=== PATIENT | male | born 1945 | race Hispanic/Latino ===

== ENCOUNTER 2017-07-01 12:20 | Emergency (ER) | payer OTHER, MEDICARE ==
[~2017-07-01 12:20] MED LIST: ACET-66 PO; ASPI81TA40 PO; ATOR40TA71 PO; CARV6.25 PO; DONE10TA43 PO; INSU3INS3 SQ; LINA5TAB PO; METF10004 PO
[2017-07-01 12:54] LABS: BASOPHILS % (AUTO) 0.4 % (0.0-5.0); EOSINOPHILS % (AUTO) 1.2 % (0.0-8.0); HEMATOCRIT 41.1 % (42-54); LYMPHOCYTES % (AUTO) 22.2 % (21.0-51.0); MEAN CORPUSCULAR HEMOGLOBIN 29.1 pg (27.0-33.0); MEAN CORPUSCULAR HGB CONC 34.4 g/dL (32.0-36.0); MEAN CORPUSCULAR VOLUME 84.7 fL (79-99); MONOCYTES % (AUTO) 4.4 % (3.0-13.0); NEUTROPHILS % (AUTO) 71.8 % (40.0-77.0); PLATELET COUNT (AUTO) 188 K/uL (130-400); RED BLOOD CELL COUNT(AUTO) 4.85 MIL/uL (4.50-6.20); RED CELL DISTRIBUTION WIDTH 15.1 % (11.0-15.5)
[2017-07-01 13:03] LABS: CREATININE 0.9 mg/dL (0.5-1.5); POTASSIUM 3.9 mmol/L (3.5-5.1)
[2017-07-01 13:07] LABS: ALBUMIN 3.7 g/dL (3.5-5.0); BILIRUBIN,TOTAL 0.5 mg/dL (0.2-1.0); TOTAL PROTEIN, SERUM 7.7 g/dL (6.0-8.3)
[2017-07-01] MEDS ORDERED: ACETAMINOPHEN EXTRA STRENGTH 500 MG TABLET ONE (13:40)
[2017-07-01 13:46] LABS: INR 0.94 (0.85-1.15); PARTIAL THROMBOPLASTIN TIME 26.1 SEC (26.3-35.5); PROTHROMBIN TIME 9.9 SEC (9.6-11.6)
== END 2017-07-01 14:55 | disposition home or self-care (01) ==
LOC: EDH 12:20
DX: R55 Syncope and collapse (principal); R51 Headache; E11.9 Type 2 diabetes mellitus without complications; E78.5 Hyperlipidemia, unspecified; I10 Essential (primary) hypertension
CPT/HCPCS: 36415; 70450; 80053; 85025; 85610; 85730; 93005

== ENCOUNTER 2018-05-21 12:54 | Emergency (ER) | payer MEDICARE, OTHER ==
[~2018-05-21 12:54] MED LIST changes: +METF-446 PO; -METF10004 PO
[2018-05-21 13:37] LABS: BASOPHILS % (AUTO) 0.8 % (0.0-5.0); EOSINOPHILS % (AUTO) 2.1 % (0.0-8.0); HEMATOCRIT 40.8 % (42-54); LYMPHOCYTES % (AUTO) 22.1 % (21.0-51.0); MEAN CORPUSCULAR HEMOGLOBIN 29.1 pg (27.0-33.0); MEAN CORPUSCULAR HGB CONC 33.6 g/dL (32.0-36.0); MEAN CORPUSCULAR VOLUME 86.4 fL (79-99); PLATELET COUNT (AUTO) 191 K/uL (130-400); RED BLOOD CELL COUNT(AUTO) 4.72 MIL/uL (4.50-6.20); RED CELL DISTRIBUTION WIDTH 14.1 % (11.0-15.5); WHITE BLOOD COUNT (AUTO) 6.1 K/uL (4.8-10.8)
[2018-05-21 13:46] LABS: CREATININE 0.9 mg/dL (0.5-1.5)
[2018-05-21 13:48] LABS: INR 0.99 (0.85-1.15); PARTIAL THROMBOPLASTIN TIME 27.2 SEC (26.3-35.5); PROTHROMBIN TIME 10.4 SEC (9.6-11.6)
[2018-05-21 13:55] LABS: ALBUMIN 3.4 g/dL (3.5-5.0); BILIRUBIN,TOTAL 0.5 mg/dL (0.2-1.0); TOTAL PROTEIN, SERUM 7.4 g/dL (6.0-8.3)
[2018-05-21 14:11] LABS: B-TYPE NATRIURETIC PEPTIDE 101 pg/mL (0-100)
== END 2018-05-21 15:22 | disposition left against medical advice (07) ==
LOC: EDH 12:54
DX: R07.89 Other chest pain (principal); E11.9 Type 2 diabetes mellitus without complications; E78.5 Hyperlipidemia, unspecified; I10 Essential (primary) hypertension; Z88.6 Allergy status to analgesic agent; Z87.891 Personal history of nicotine dependence
CPT/HCPCS: 36415; 71045; 80053; 82550; 83880; 84484; 85025; 85610; 85730; 93005

== ENCOUNTER 2018-09-24 10:27 | Emergency (ER) | payer MEDICARE ==
[2018-09-24 11:47] LABS: BASOPHILS % (AUTO) 0.8 % (0.0-5.0); EOSINOPHILS % (AUTO) 1.4 % (0.0-8.0); HEMATOCRIT 36.9 % (42-54); LYMPHOCYTES % (AUTO) 22.7 % (21.0-51.0); MEAN CORPUSCULAR VOLUME 85.2 fL (79-99); NEUTROPHILS % (AUTO) 69.1 % (40.0-77.0); NUCLEATED RED BLOOD CELLS 0.1 % (0.0-0.19); PLATELET COUNT (AUTO) 212 K/uL (130-400); RED BLOOD CELL COUNT(AUTO) 4.33 MIL/uL (4.50-6.20); RED CELL DISTRIBUTION WIDTH 14.7 % (11.0-15.5); WHITE BLOOD COUNT (AUTO) 6.5 K/uL (4.8-10.8)
[2018-09-24 11:58] LABS: APPEARANCE,URINE Clear (CLEAR); BILIRUBIN,URINE Negative (NEGATIVE); COLOR,URINE Yellow (YELLOW); GLUCOSE, URINE (UA) Negative (NEGATIVE); KETONES,URINE Trace mg/dL (NEGATIVE); LEUKOCYTE ESTERASE ,URINE Negative (NEGATIVE); NITRATE,URINE Negative (NEGATIVE); OCCULT BLOOD,URINE Negative (NEGATIVE); PH,URINE 5.5 (5.0-8.0); PROTEIN,URINE Negative (NEGATIVE)
[2018-09-24 12:05] LABS: INR 1.02 (0.85-1.15); PARTIAL THROMBOPLASTIN TIME 29.6 SEC (26.3-35.5); PROTHROMBIN TIME 10.7 SEC (9.6-11.6)
[2018-09-24 12:34] LABS: BACTERIA,URINE None Seen /HPF (None Seen); MUCUS,URINE Moderate LPF (None Seen); RBC,URINE 0-1 /HPF (0-1); SQUAMOUS EPITHELIAL CELL,UR 0-2 /HPF (0-2); WBC,URINE 0-1 /HPF (0-1)
[2018-09-24] MEDS ORDERED: TRAMADOL HCL 50 MG TABLET ONE (12:57)
== END 2018-09-24 13:16 | disposition home or self-care (01) ==
LOC: EDH 10:27
DX: S09.8XXA Other specified injuries of head, initial encounter (principal); M54.2 Cervicalgia; M25.512 Pain in left shoulder; M25.511 Pain in right shoulder; E11.9 Type 2 diabetes mellitus without complications; E78.5 Hyperlipidemia, unspecified; I10 Essential (primary) hypertension; Z88.6 Allergy status to analgesic agent; W18.39XA Other fall on same level, initial encounter; Y93.89 Activity, other specified; Y92.89 Other specified places as the place of occurrence of the external cause; Y99.8 Other external cause status
CPT/HCPCS: 36415; 70450; 71045; 72070; 72125; 81001; 82550; 84484; 85025; 85610; 85730; 93005

== ENCOUNTER 2018-09-29 13:39 | Inpatient (IN) | payer MEDICARE | END 2018-10-07 20:21 | LOC: EDH 13:39 → EDHIP 18:15 → 3BH 19:37 | DX: J20.9 Acute bronchitis, unspecified (principal); N39.0 Urinary tract infection, site not specified; M62.82 Rhabdomyolysis; E86.0 Dehydration; E11.9 Type 2 diabetes mellitus without complications; I10 Essential (primary) hypertension; R13.12 Dysphagia, oropharyngeal phase; F02.80 Dementia in other diseases classified elsewhere, unspecified severity, without behavioral disturbance, psychotic disturbance, mood disturbance, and anxiety; G30.9 Alzheimer's disease, unspecified; E78.5 Hyperlipidemia, unspecified ==

== ENCOUNTER 2018-10-08 08:12 | Emergency (ER) | payer MEDICARE ==
[~2018-10-08 08:12] MED LIST changes: +MEMA10TA20 PO; +OLAN5TAB27 PO
[2018-10-08] MEDS ORDERED: BISACODYL 10 MG SUPP.RECT RC ONE (08:53)
[2018-10-08 08:57] LABS: BASOPHILS % (AUTO) 0.9 % (0.0-5.0); EOSINOPHILS % (AUTO) 1.7 % (0.0-8.0); HEMATOCRIT 41.1 % (42-54); LYMPHOCYTES % (AUTO) 12.8 % (21.0-51.0); MEAN CORPUSCULAR HEMOGLOBIN 28.6 pg (27.0-33.0); MEAN CORPUSCULAR HGB CONC 33.3 g/dL (32.0-36.0); MEAN CORPUSCULAR VOLUME 85.9 fL (79-99); MONOCYTES % (AUTO) 5.4 % (3.0-13.0); NEUTROPHILS % (AUTO) 79.2 % (40.0-77.0); PLATELET COUNT (AUTO) 329 K/uL (130-400); RED BLOOD CELL COUNT(AUTO) 4.78 MIL/uL (4.50-6.20); RED CELL DISTRIBUTION WIDTH 14.5 % (11.0-15.5); WHITE BLOOD COUNT (AUTO) 7.8 K/uL (4.8-10.8)
[2018-10-08 09:08] LABS: CREATININE 0.8 mg/dL (0.5-1.5); POTASSIUM 3.4 mmol/L (3.5-5.1)
[2018-10-08 09:11] LABS: BILIRUBIN,TOTAL 0.5 mg/dL (0.2-1.0); TOTAL PROTEIN, SERUM 6.9 g/dL (6.0-8.3)
== END 2018-10-08 12:43 | disposition home or self-care (01) ==
LOC: EDH 08:12
DX: E11.9 Type 2 diabetes mellitus without complications (principal); I10 Essential (primary) hypertension; E78.5 Hyperlipidemia, unspecified; Z98.890 Other specified postprocedural states; Z88.6 Allergy status to analgesic agent; Z79.4 Long term (current) use of insulin
CPT/HCPCS: 36415; 71045; 80053; 83735; 84484; 85025; 93005

== ENCOUNTER 2018-10-12 01:11 | Inpatient (IN) | payer MEDICARE ==
[~2018-10-12] VITALS: Ht 172.7 cm; Wt 73.5 kg
[2018-10-12] MEDS ORDERED: IPRATROPIUM/ALBUTEROL SULFATE 3 ML SOLUTION IH ONE ×2 (02:37→05:51)
[2018-10-12 02:44] LABS: BASOPHILS % (AUTO) 0.6 % (0.0-5.0); EOSINOPHILS % (AUTO) 1.3 % (0.0-8.0); HEMATOCRIT 38.6 % (42-54); MEAN CORPUSCULAR VOLUME 85.4 fL (79-99); MONOCYTES % (AUTO) 4.9 % (3.0-13.0); NEUTROPHILS % (AUTO) 80.2 % (40.0-77.0); PLATELET COUNT (AUTO) 301 K/uL (130-400); RED BLOOD CELL COUNT(AUTO) 4.52 MIL/uL (4.50-6.20); RED CELL DISTRIBUTION WIDTH 14.3 % (11.0-15.5); WHITE BLOOD COUNT (AUTO) 11.4 K/uL (4.8-10.8)
[2018-10-12 02:54] LABS: CARBON DIOXIDE 26 mmol/L (21-32); CHLORIDE 105 mmol/L (101-111); CREATININE 0.8 mg/dL (0.5-1.5); GLOMERULAR FILTR. RATE CALC 100 mL/min (>60); GLUCOSE,RANDOM 97 mg/dL (70-105); POTASSIUM 3.5 mmol/L (3.5-5.1); SODIUM SERUM 143 mmol/L (136-145); UREA NITROGEN, BLOOD 16 mg/dL (7-18)
[2018-10-12] MEDS ORDERED: TETANUS/DIPHTHERIA TOXOID [ADULT] 0.5 ML VIAL IM ONE (02:58)
[2018-10-12 02:59] LABS: INR 1.07 (0.85-1.15); PARTIAL THROMBOPLASTIN TIME 30.1 SEC (26.3-35.5); PROTHROMBIN TIME 11.2 SEC (9.6-11.6)
[2018-10-12] MEDS ORDERED: SODIUM CHLORIDE 0.9% 1000ML 1,000 ML IV ONE ×2 (02:59→13:53)
[2018-10-12 03:15] LABS: ALANINE AMINOTRANSFERASE 44 U/L (12-78); ALBUMIN 3.2 g/dL (3.5-5.0); ASPARTATE AMINOTRANSFERASE 37 U/L (10-37); BILIRUBIN,TOTAL 0.7 mg/dL (0.2-1.0); CREATINE KINASE, TOTAL 74 U/L (21-232); MYOGLOBIN 118 ng/mL (10-92); TOTAL PROTEIN, SERUM 6.6 g/dL (6.0-8.3); TROPONIN I < 0.04 ng/mL (0.00-0.06)
[2018-10-12] MEDS ORDERED: LIDOCAINE HCL 1% 20 ML VIAL ONE (04:42)
[2018-10-12 04:57] LABS: ABG BASE EXCESS -0.9 mmol/L (-2.0-3.0); ABG HCO3 23.4 mmol/L (21.0-28.0); ABG OXYGEN SATURATION 94.4 % (95.0-99.0); ABG PCO2 38 mmHg (35-48)
[2018-10-12] MEDS ORDERED: LEVOFLOXACIN 750 MG/D5W 150 ML 150 ML ONE (05:56)
[2018-10-12 08:30] LABS: APPEARANCE,URINE SL CLOUDY (CLEAR); BILIRUBIN,URINE SMALL (NEGATIVE); COLOR,URINE YELLOW (YELLOW); GLUCOSE, URINE (UA) NEGATIVE (NEGATIVE); KETONES,URINE 40 mg/dL (NEGATIVE); LEUKOCYTE ESTERASE ,URINE NEGATIVE (NEGATIVE); NITRATE,URINE NEGATIVE (NEGATIVE); OCCULT BLOOD,URINE LARGE (NEGATIVE); PROTEIN,URINE 30 mg/dL (NEGATIVE); UROBILINOGEN,URINE 0.2 mg/dL (0.2-1.0)
[2018-10-12 08:47] LABS: BACTERIA,URINE Few /HPF (None Seen); MUCUS,URINE Many LPF (None Seen); SQUAMOUS EPITHELIAL CELL,UR Rare /HPF (0-2)
[2018-10-12] MEDS ORDERED: ACETAMINOPHEN 650 MG SUPPOSITORY RC ONE (11:07)
[2018-10-12] MEDS ORDERED: CEFTRIAXONE SODIUM 1 GM ONE (11:19)
[2018-10-12] MEDS: SODIUM CHLORIDE 0.9% 1000ML 1,000 ML IV SCH (18:42)
[2018-10-12 18:45] VITALS: BP 137/80
[2018-10-12] MEDS ORDERED: ACETAMINOPHEN 650 MG SUPPOSITORY RC PRN (18:45)
[2018-10-12] MEDS: PHARMACY COMMUNICATION MISC SCH (18:45)
[2018-10-12] MEDS: ATORVASTATIN CALCIUM 40 MG TABLET PO SCH (20:56)
[2018-10-12] MEDS ORDERED: OLANZAPINE 5 MG TAB PO SCH (21:00)
[2018-10-12] MEDS ORDERED: HALOPERIDOL LACTATE 5 MG/ML VIAL IM ONE (21:50)
--- NOTE | 2018-10-12 21:50 | NUR ---
Patient condition changed. Patient is much calmer and not getting out of bed. Haldol was not given
[2018-10-12 23:29] VITALS: BP 129/63
[2018-10-13] MEDS: PHARMACY COMMUNICATION MISC SCH ×3 (02:45→18:45)
[2018-10-13 04:25] VITALS: BP 156/82
[2018-10-13 08:00] VITALS: BP 134/69
[2018-10-13] MEDS: SODIUM CHLORIDE 0.9% 1000ML 1,000 ML IV SCH ×2 (08:05→21:25)
--- NOTE | 2018-10-13 09:32 | NUR ---
CARLIN Howell met with pt's Leyda Bales [phone]. Per , pt was discharged Wednesday to [facility] in [place] and she took him out Sat morning because the facility was "horrible" and pt was still sounding very congested and felt warm. states ambulance brought pt to ER. Pt was seen and released home. reports that pt continued with congestion and feeling warm, so she got up to get dressed before she called ambulance, During that time, pt stood up and tried to take a step and fell, cutting his ear. called ambulance and brought him here. also reports eneida she was working with Shalonda at [facility] to get pt admitted from home. Shalonda is aware that pt is now here. wishes to contiue with referral and possible placement at [facility]. signed consent for referral. J Carlos complete and on chart. CM to make referral and assist as needed Addendum: 10/13/18 at 0939 by ZEHRA RAMOS Amended: Links added.
[2018-10-13 12:00] VITALS: BP 138/57
[2018-10-13] MEDS ORDERED: DEXTROSE 50%-WATER 50 ML DISP.SYRIN IV PRN (12:00)
[2018-10-13] MEDS ORDERED: GLUCAGON 1MG KIT 1 MG ML IM PRN (12:00)
--- NOTE | 2018-10-13 13:27 | NUR ---
SW NOTES REVIEWED, WILL SEND REFERRAL AND CONTACT [facility] FROM [facility] Addendum: 10/13/18 at 1328 by SATHYA FLORES RN CM Amended: Links added.
--- NOTE | 2018-10-13 13:36 | NUR ---
RD Notification Pt admitted with FTT. Pt NPO at time of screen. Diet advanced to 75gm, Puree, NTL. RD rec to add Thickened Glucerna with meals. Pt monitored labs: Alb 3.2, H/H 13.1/38.6. RD to continue to monitor. Please notify RD as additional nutrition concerns arise. Thank you. Addendum: 10/13/18 at [address] Amended: Links added.
--- NOTE | 2018-10-13 14:29 | NUR ---
CONTACT W [facility] SENT ALL AVAILABLE CLNIICALS--SPOKE TO [facility] FROM [facility] , WILL COME SEE PATIENT IN AM, SPOUSE INFORMED, VERBALIZED UNDERSTANDING.
[2018-10-13] MEDS: CEFTRIAXONE SODIUM 1 GM IVP SCH (15:37)
[2018-10-13 16:00] VITALS: BP 114/63
[2018-10-13] MEDS: INSULIN HUMULIN R 100 UNIT/ML 3ML SQ SCH ×2 (16:30→21:00)
[2018-10-13 20:00] VITALS: BP 141/79
[2018-10-13] MEDS: ATORVASTATIN CALCIUM 40 MG TABLET PO SCH (22:11)
[2018-10-13] MEDS: HALOPERIDOL LACTATE 5 MG/ML VIAL IV PRN (22:12)
[2018-10-13 23:49] VITALS: BP 135/67
[2018-10-14] MEDS: PHARMACY COMMUNICATION MISC SCH ×3 (02:45→18:45)
[2018-10-14 04:03] VITALS: BP 128/67
[2018-10-14] MEDS: INSULIN HUMULIN R 100 UNIT/ML 3ML SQ SCH ×4 (05:53→20:26)
[2018-10-14 08:00] VITALS: BP 149/67
[2018-10-14] MEDS: ENOXAPARIN SODIUM 40 MG/0.4 ML SYRINGE SQ SCH ×2 (08:15→20:21)
--- NOTE | 2018-10-14 09:30 | NUR ---
DYSPHAGIA EVAL COMPLETED. +S/S OF ASPIRATION WITH THIN AND NECTAR-THICK LIQUIDS; RECOMMEND LONG-TERM ALTERNATE MEANS OF NUTRITION/HYDRATION WITH PLEASURE FEEDS: PUREED, HONEY-THICK LIQUIDS, PILLS CRUSHED. PATIENT INFORMATION: Pt IS 72 Y.O. MALE REFERRED FOR DYSPHAGIA EVAL SECONDARY TO DYSPHAGIA. Pt RECENTLY DISCHARGED FROM HOSPITAL WHERE HE WENT TO SNF. TOOK HIM HOME AFTER 1 DAY SECONDARY TO NOT LIKING THE SNF. Pt SUFFERED FALL AT HOME AND WAS BROUGHT TO THE EMERGENCY ROOM AND DISCHARGED HOME. Pt RETURNED TO HOSPITAL YESTERDAY SECONDARY TO FAILURE TO THRIVE. PMHX SIGNIFICANT FOR DEMENTIA, BILATERAL KNEE ARTHROPLASTY, DM, AND INCONTINENCE. REPORTS THE Pt WAS EATING PRECIOUSLY RECOMMENDED DIET OF PUREED, NECTAR-THICK LIQUIDS. DURING INTERVIEW, REPORTED THAT Pt ATE SMALL PORTIONS OF P.O. (APPROXIMATELY 2 OZ). PLEASE NOTE Pt WAS ATTEMPTED TO HIT GENERAL FORECASTER AT THE BEGINNING OF EVALUATION. THEREAFTER, GENERAL FORECASTER COAXED Pt INTO PARTICIPATION WITH TRIALS. CURRENTLY, MAX COAXING IS REQUIRED FOR Pt TO PARTICIPATE IN ALL MEALS. EVALUATION: Pt PRESENTS WITH MODERATE ORAL AND SEVERE PHARYNGEAL DYSPHAGIA C/B DECREASED ORAL COORDINATION, DECREASED BOLUS PREP/MANIPULATION, DECREASED LARYNGEAL ELEVATION/EXCURSION, AND DELAYED PHARYNGEAL RESPONSE TIME/APNEIC REFLEX C/B ORAL GROPING AT SPOON AND STRAW, INABILITY TO MASTICATE MECH SOFT TEXTURE AND SWALLOWED WHOLE, AND +S/S OF ASPIRATION OF COUGHING WITH THIN LIQUIDS AND NECTAR-THICK LIQUIDS. PLEASE NOTE Pt DEMONSTRATES FATIGUE IN MUSCULATURE MEAL ADVANCES S/S OF ASPIRATION WERE NOTED AFTER 10 TRIALS. NOTE: Pt IS AT HIGH RISK FOR MALNUTRITION AND DEHYDRATION SECONDARY TO POOR P.O. INTAKE. RECOMMENDATIONS: 1. LONG-TERM ALTERNATE MEANS OF NUTRITION/HYDRATION. 2. PLEASURE FEEDS: PUREE TEXTURES, HONEY-THICK LIQUIDS, PILLS CRUSHED 3. COMPENSATORY STRATEGIES: *SEATED AT 90 *SLOW RATE *ASSIST WITH P.O. *REMAIN UPRIGHT 30 MINS AFTER THE MEAL 4. DIETARY CONSULT GENERAL FORECASTER EDUCATED ON RISKS AND CONSEQUENCES OF ASPIRATION. GENERAL FORECASTER EXPLAINED RESULTS AND RECOMMENDATIONS. VERBALIZED THAT SHE DID NOT THICK HE WOULD DO WELL AFTER ANAESTHESIA AND WAS AFRAID THAT Pt WOULD PULL THE TUBE OUT. SHE ALSO STATED THAT SHE WAS NOT FAMILIAR WITH PEG TUBES. GENERAL FORECASTER ENCOURAGED TO PROVIDE CONCERNS TO MD AND GO OVER RECOMMENDATIONS WITH MD. SHE VERBALIZED UNDERSTANDING AND STATED SHE WOULD THINK ABOUT POSSIBLE LONG-TERM ALTERNATE MEANS OF NUTRITION AND HYDRATION. G-CODES SWALLOWING: G8996 - CM G8997 - CL G8998 - CM Addendum: 10/14/18 at 1038 by HYACINTH GARCÍA, [facility] Amended: Links added.
--- NOTE | 2018-10-14 09:48 | NUR ---
BEDSIDE SWALLOW TEST ACCORDING TO SPEECH THERAPIST, HYACINTH, PT CONTINUES TO HAVE PROBLEMS SWALLOWING. SHE RECOMMENDS HOMEY THICK LIQUIDS AND PLEASURE FEEDINGS. SHE ALSO RECOMMENDED PEG TUBE PLACEMENT. PT'S AT BEDSIDE. HYACINTH EXPLAINS THE REASONING BEHIND HER RECOMMENDATIONS, ANSWERING 'S QUESTIONS. STATES SHE DOES NOT WANT PT TO GO THROUGH ANOTHER SURGERY.
[2018-10-14] MEDS: SODIUM CHLORIDE 0.9% 1000ML 1,000 ML IV SCH (11:49)
[2018-10-14 12:00] VITALS: BP 124/68
[2018-10-14] MEDS: CEFTRIAXONE SODIUM 1 GM IVP SCH (15:32)
[2018-10-14 16:00] VITALS: BP 149/77
[2018-10-14 19:05] VITALS: BP 131/84
--- NOTE | 2018-10-14 19:10 | NUR ---
Received report pt is not eating and agrreing with pegtube placement atthis time,however wanted to consult husbands familyas well asper report.Pt has no family around at this time.
[2018-10-14] MEDS: ATORVASTATIN CALCIUM 40 MG TABLET PO SCH (20:25)
--- NOTE | 2018-10-14 21:06 | NUR ---
Dr. Velásquez rounded and examined the pt this evening and he said hold Lovenox for tomorrow ,schedule and consent for pegtube placement tomorrow noon.Nofamily around during his visit.
[2018-10-14] MEDS: HALOPERIDOL LACTATE 5 MG/ML VIAL IV PRN (22:33)
--- NOTE | 2018-10-14 22:35 | NUR ---
Pt noted to be restless and trying to get out of bed,prn haldol given as ordered,will continue to monitor pt.
[2018-10-15] VITALS (17 sets, daily range): BP systolic 112–148; BP diastolic 58–79
--- NOTE | 2018-10-15 | NUR ---
Pt. resting well at this time,occasionally moves extremeties.Respirations even and non labored.
--- NOTE | 2018-10-15 | NUR ---
Pt. kept NPO at this time for pegtube placement tomorrow afternoon
[2018-10-15] MEDS: SODIUM CHLORIDE 0.9% 1000ML 1,000 ML IV SCH (00:56)
[2018-10-15] MEDS: PHARMACY COMMUNICATION MISC SCH ×3 (02:45→18:45)
--- NOTE | 2018-10-15 04:40 | NUR ---
[facility] already notified and procedure is already scheduled,pending consent.
[2018-10-15] MEDS: INSULIN HUMULIN R 100 UNIT/ML 3ML SQ SCH ×4 (05:55→21:00)
--- NOTE | 2018-10-15 07:57 | NUR ---
Placed call to pt's ,notified her regarding the planned procedure for today ,she said she has not decided yet but she is on her way here to the hospital.I informed her that pt is not being fed at this time in anticipation for the procedure,however if she decided not to go for the procedure ,pt will be fed for breakfast.She said she will decide once she gets here.Incoming NOD informed.
[2018-10-15 08:12] LABS: HEMATOCRIT 38.3 % (42-54); MEAN CORPUSCULAR HEMOGLOBIN 28.2 pg (27.0-33.0); MEAN CORPUSCULAR HGB CONC 33.1 g/dL (32.0-36.0); MEAN CORPUSCULAR VOLUME 85.1 fL (79-99); PLATELET COUNT (AUTO) 243 K/uL (130-400); RED CELL DISTRIBUTION WIDTH 14.3 % (11.0-15.5); WHITE BLOOD COUNT (AUTO) 8.3 K/uL (4.8-10.8)
[2018-10-15 08:26] LABS: CREATININE 0.6 mg/dL (0.5-1.5)
[2018-10-15 08:38] LABS: INR 1.03 (0.85-1.15); PARTIAL THROMBOPLASTIN TIME 34.4 SEC (26.3-35.5); PROTHROMBIN TIME 10.8 SEC (9.6-11.6)
[2018-10-15 09:02] LABS: POTASSIUM 2.8 mmol/L (3.5-5.1)
[2018-10-15] MEDS: LIDOCAINE HCL-MPF 1% 2ML VIAL IVP PRN ×2 (11:45→13:32)
[2018-10-15] MEDS: POTASSIUM CHLORIDE 20MEQ/100ML 100 ML IV PRN ×3 (11:46→22:55)
[2018-10-15] MEDS ORDERED: MEPERIDINE-PF 50 MG/ML SYG ONE (15:23)
[2018-10-15] MEDS ORDERED: MIDAZOLAM HCL 1 MG/ML 2ML VIAL ONE (15:23)
[2018-10-15] MEDS ORDERED: CEFAZOLIN SODIUM 1 GM VIAL ONE (15:37)
[2018-10-15] MEDS ORDERED: D5LR-20 MEQ KCL 1000ML BAG IV SCH (19:00)
[2018-10-15] MEDS: CEFTRIAXONE SODIUM 1 GM IVP SCH (19:41)
[2018-10-15] MEDS: ATORVASTATIN CALCIUM 40 MG TABLET PO SCH (22:06)
[2018-10-15] MEDS ORDERED: DEXTROSE 5%-LACTATED RINGERS 1,000 ML IV ONE (22:40)
[2018-10-16] VITALS: BP 144/77
[2018-10-16] MEDS: PHARMACY COMMUNICATION MISC SCH ×3 (02:45→18:45)
[2018-10-16 04:00] VITALS: BP 134/76
[2018-10-16] MEDS: INSULIN HUMULIN R 100 UNIT/ML 3ML SQ SCH ×4 (06:14→20:43)
[2018-10-16 07:20] LABS: BASOPHILS % (AUTO) 0.6 % (0.0-5.0); EOSINOPHILS % (AUTO) 1.6 % (0.0-8.0); LYMPHOCYTES % (AUTO) 11.8 % (21.0-51.0); MEAN CORPUSCULAR HEMOGLOBIN 28.9 pg (27.0-33.0); MEAN CORPUSCULAR HGB CONC 34.3 g/dL (32.0-36.0); MEAN CORPUSCULAR VOLUME 84.3 fL (79-99); MONOCYTES % (AUTO) 5.8 % (3.0-13.0); NEUTROPHILS % (AUTO) 80.2 % (40.0-77.0); PLATELET COUNT (AUTO) 232 K/uL (130-400); RED BLOOD CELL COUNT(AUTO) 4.51 MIL/uL (4.50-6.20); RED CELL DISTRIBUTION WIDTH 14.5 % (11.0-15.5); WHITE BLOOD COUNT (AUTO) 8.4 K/uL (4.8-10.8)
[2018-10-16 07:28] LABS: CREATININE 0.6 mg/dL (0.5-1.5)
[2018-10-16 07:31] LABS: POTASSIUM 2.9 mmol/L (3.5-5.1)
[2018-10-16 08:00] VITALS: BP 133/73
[2018-10-16] MEDS ORDERED: MAGNESIUM 2GM PREMIX 50ML 50 ML IV PRN (09:00)
[2018-10-16] MEDS: ENOXAPARIN SODIUM 40 MG/0.4 ML SYRINGE SQ SCH (09:44)
--- NOTE | 2018-10-16 10:04 | NUR ---
notified max the [facility] agent about the consult and evaluation. she verbalized that she will be seeing the patient in 20 minutes
--- NOTE | 2018-10-16 10:47 | NUR ---
RD Update Pt with FTT. RD Notified of PEG Placement. RD Tube feeding Recommendations: Vital AF 1.2 @65mL/hr (1560/1872/117/1265) Flushes: 100mL Q6hrs Tube feeding recommendations to be placed in Pt chart. RD to continue to monitor. Please notify RD as additional nutrition concerns arise. Thank you.
[2018-10-16] MEDS: POTASSIUM CHLORIDE 20MEQ/100ML 100 ML IV PRN (11:26)
[2018-10-16 12:00] VITALS: BP 124/62
[2018-10-16] MEDS ORDERED: POTASSIUM CHLORIDE 20MEQ/100ML 100 ML IV PRN (13:00)
[2018-10-16] MEDS ORDERED: D5LR-20 MEQ KCL 1000 ML 1,000 ML IV SCH (13:00)
[2018-10-16] MEDS ORDERED: LIDOCAINE HCL-MPF 1% 2ML VIAL IVP PRN (13:00)
[2018-10-16] MEDS: CEFTRIAXONE SODIUM 1 GM IVP SCH (15:33)
[2018-10-16] MEDS: POTASSIUM CHLORIDE 10% ELIXIR 20 MEQ/15 ML UDCUP PO PRN (15:34)
[2018-10-16 16:00] VITALS: BP 150/83
[2018-10-16 19:08] VITALS: BP 146/74
[2018-10-16] MEDS: ATORVASTATIN CALCIUM 40 MG TABLET PO SCH (21:23)
[2018-10-16] MEDS: HALOPERIDOL LACTATE 5 MG/ML VIAL IV PRN (21:46)
[2018-10-17] VITALS (7 sets, daily range): BP systolic 121–150; BP diastolic 49–87
[2018-10-17] MEDS: PHARMACY COMMUNICATION MISC SCH ×2 (02:45→10:45)
[2018-10-17] MEDS: INSULIN HUMULIN R 100 UNIT/ML 3ML SQ SCH ×3 (06:34→16:30)
[2018-10-17 06:39] LABS: BASOPHILS % (AUTO) 0.7 % (0.0-5.0); EOSINOPHILS % (AUTO) 1.7 % (0.0-8.0); HEMATOCRIT 36.2 % (42-54); LYMPHOCYTES % (AUTO) 16.5 % (21.0-51.0); MEAN CORPUSCULAR HEMOGLOBIN 28.3 pg (27.0-33.0); MEAN CORPUSCULAR HGB CONC 33.8 g/dL (32.0-36.0); MEAN CORPUSCULAR VOLUME 83.7 fL (79-99); NEUTROPHILS % (AUTO) 74.1 % (40.0-77.0); NUCLEATED RED BLOOD CELLS 0.1 % (0.0-0.19); PLATELET COUNT (AUTO) 243 K/uL (130-400); RED BLOOD CELL COUNT(AUTO) 4.32 MIL/uL (4.50-6.20); RED CELL DISTRIBUTION WIDTH 14.7 % (11.0-15.5); WHITE BLOOD COUNT (AUTO) 7.1 K/uL (4.8-10.8)
[2018-10-17 06:59] LABS: ALBUMIN 2.6 g/dL (3.5-5.0); BILIRUBIN,TOTAL 0.4 mg/dL (0.2-1.0); CREATININE 0.7 mg/dL (0.5-1.5); MAGNESIUM 1.9 mg/dL (1.80-2.40); POTASSIUM 3.2 mmol/L (3.5-5.1); TOTAL PROTEIN, SERUM 6.1 g/dL (6.0-8.3)
[2018-10-17] MEDS: ENOXAPARIN SODIUM 40 MG/0.4 ML SYRINGE SQ SCH (10:25)
[2018-10-17] MEDS: POTASSIUM CHLORIDE 10% ELIXIR 20 MEQ/15 ML UDCUP PO PRN ×2 (10:25→17:07)
[2018-10-17] MEDS ORDERED: LACTULOSE 20 GM/30 ML UDCUP PO SCH (12:00)
[2018-10-17] MEDS ORDERED: LACTULOSE 20 GM/30 ML UDCUP PO PRN (12:15)
--- NOTE | 2018-10-17 20:04 | NUR ---
FAXED UP DATES TO [facility] PENDING AUTH FROM [facility] PT WITH NEW PEG ON THE WEEKEND. INFO FAXED TO [facility]. PENDING AUTH Addendum: 10/17/18 at 2005 by SATHYA FLORES RN CM Amended: Links added.
[2018-10-17] MEDS: ATORVASTATIN CALCIUM 40 MG TABLET PO SCH (21:47)
[2018-10-18 03:48] VITALS: BP 127/88
[2018-10-18] MEDS: INSULIN HUMULIN R 100 UNIT/ML 3ML SQ SCH ×2 (06:00→11:20)
[2018-10-18 08:00] VITALS: BP 125/75
[2018-10-18] MEDS: ENOXAPARIN SODIUM 40 MG/0.4 ML SYRINGE SQ SCH (08:52)
[2018-10-18] MEDS: PHARMACY COMMUNICATION MISC SCH (08:52)
[2018-10-18] MEDS ORDERED: PANTOPRAZOLE SODIUM 40 MG TABLET.DR PO SCH (09:00)
--- NOTE | 2018-10-18 11:27 | NUR ---
TREATMENT COMPLETED. S: Pt SEATED IN 90 DEGREE ANGLE IN BED. Pt EASILY AROUSED AND AGREED TO PARTICIPATE IN THERAPEUTIC FEEDINGS. Pt WITH PEG TUBE IN PLACE AT THIS TIME. O: Pt CURRENTLY TARGETING SWALLOWING GOALS. RESULTS ARE FOLLOWS: STG4: Pt WILL TOLERATE THERAPEUTIC TRIALS OF ADVANCED TEXTURE OF PUREED, HONEY-THICK LIQUIDS WITH NO OVERT S/S OF ASPIRATIONS:NOT PROVIDED. Pt WITH ONLY 6 TRIALS SECONDARY TO NOT WANTING TO CONTINUE EATING. A: Pt TOLERATING PUREED, HONEY-THICK LIQUIDS. CONTINUED PLEASURE FEEDS ARE RECOMMENDED AT THIS TIME. P: RECOMMEND CONTINUED PUREED, HONEY-THICK LIQUID PLEASURE FEEDS. SUPERVISOR INSPECTION COORDINATED CARE WITH NURSE PUENTE. NOT PRESENT AT THE TIME OF THE SESSION. Addendum: 10/18/18 at 1130 by HYACINTH GARCÍA, [facility] Amended: Links added.
[2018-10-18 12:00] VITALS: BP 125/67
--- NOTE | 2018-10-18 15:05 | NUR ---
REPORT CALLED TO DARYL MCKEE RN AT [facility]. ALL QUESTIONS ANSWERED.
--- NOTE | 2018-10-18 15:38 | NUR ---
PATIENT'S NO LONGER AT BEDSIDE. CALLED TO INFORM HER OF PENDING DISCHARGE TO [facility]. STATES SHE WILL COME PACK TO SIGN PAPERWORK.
[2018-10-18 16:00] VITALS: BP 136/82
--- NOTE | 2018-10-18 17:57 | NUR ---
PIV REMOVED, INTACT, GAUZE DRESSING APPLIED. PATIENT TAKEN BY EMS FOR DC TO [facility]. AT BEDSIDE.
== END 2018-10-18 17:55 | DRG 689 ==
LOC: EDH 01:11 → EDHIP 06:15 → 3BH 17:55
PROVIDERS: ADMIT Internal Medicine; ATTEND Internal Medicine
PROC: 0DH63UZ Insertion of Feeding Device into Stomach, Percutaneous Approach (ICD-10-PCS; principal; 2018-10-15)
DX: N30.01 Acute cystitis with hematuria (principal); G92 Toxic encephalopathy; E43 Unspecified severe protein-calorie malnutrition; I50.22 Chronic systolic (congestive) heart failure; K29.00 Acute gastritis without bleeding; F03.90 Unspecified dementia, unspecified severity, without behavioral disturbance, psychotic disturbance, mood disturbance, and anxiety; I11.0 Hypertensive heart disease with heart failure; E11.9 Type 2 diabetes mellitus without complications; R62.7 Adult failure to thrive; K29.80 Duodenitis without bleeding; K27.9 Peptic ulcer, site unspecified, unspecified as acute or chronic, without hemorrhage or perforation; D64.9 Anemia, unspecified; K21.0 Gastro-esophageal reflux disease with esophagitis; R13.12 Dysphagia, oropharyngeal phase; E78.5 Hyperlipidemia, unspecified; Z68.24 Body mass index [BMI] 24.0-24.9, adult; Z88.6 Allergy status to analgesic agent; Z74.01 Bed confinement status; Z79.01 Long term (current) use of anticoagulants
CPT/HCPCS: 36415; 36600; 43246; 70450; 71045; 72125; 74176; 80048; 80053; 81001; 82550; 82803; 82948; 83605; 83735; 83874; 84484; 85025; 85027; 85610; 85730; 87040; 87088; 87804; 90714; 92526; 92610; 93005; 94640; 97039; 99291; G0378; J0690; J0696; J1630; J1650; J1956; J2175; J2250; J3475; J3480; J3490; J7030